=== PATIENT | female | born 1935 | race Caucasian/White ===

== ENCOUNTER → 2016-08-12 | Outpatient (CLI) | payer MEDICARE | END | disposition short-term general hospital (02) | LOC: CLPULM 04:01 | DX: J44.9 Chronic obstructive pulmonary disease, unspecified (principal); G47.33 Obstructive sleep apnea (adult) (pediatric); J96.11 Chronic respiratory failure with hypoxia; J84.10 Pulmonary fibrosis, unspecified; F17.210 Nicotine dependence, cigarettes, uncomplicated; J92.9 Pleural plaque without asbestos; K21.9 Gastro-esophageal reflux disease without esophagitis; N20.0 Calculus of kidney; K22.2 Esophageal obstruction; D75.1 Secondary polycythemia; R60.0 Localized edema; K27.9 Peptic ulcer, site unspecified, unspecified as acute or chronic, without hemorrhage or perforation; Z86.19 Personal history of other infectious and parasitic diseases; Z98.890 Other specified postprocedural states ==

== ENCOUNTER → 2016-10-07 | Outpatient (CLI) | payer MEDICARE | END | disposition short-term general hospital (02) | LOC: CLPULM 01:13 | DX: J44.9 Chronic obstructive pulmonary disease, unspecified (principal); J96.11 Chronic respiratory failure with hypoxia; G47.33 Obstructive sleep apnea (adult) (pediatric); J84.10 Pulmonary fibrosis, unspecified; J92.9 Pleural plaque without asbestos; D75.1 Secondary polycythemia; K27.9 Peptic ulcer, site unspecified, unspecified as acute or chronic, without hemorrhage or perforation; K21.9 Gastro-esophageal reflux disease without esophagitis; Z72.0 Tobacco use ==